=== PATIENT | male | born 1990 | race Caucasian/White ===

== ENCOUNTER 2016-07-14 14:53 | Emergency (ER) | payer BC, OTHER ==
[~2016-07-14] VITALS: Ht 180.3 cm; Wt 90.3 kg
[2016-07-14 14:56] VITALS: TEMP 36.6; Ht 180.3 cm; Wt 90.3 kg
[2016-07-14] MEDS ORDERED: DIPHTHERIA/TETANUS/PERTUSSIS 0.5 ML SYR/VIAL IM. ONE (15:30)
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
[2016-07-14 16:48] VITALS: BP 122/78; PULSE 88; O2SAT 98
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
== END 2016-07-14 16:54 | disposition home or self-care (01) ==
LOC: C.EDB 14:54 → C.EDA 16:54
DX: S63.502A Unspecified sprain of left wrist, initial encounter (principal); V43.51XA Car driver injured in collision with sport utility vehicle in traffic accident, initial encounter; Z80.9 Family history of malignant neoplasm, unspecified; Z82.49 Family history of ischemic heart disease and other diseases of the circulatory system

== ENCOUNTER → 2016-12-13 | Outpatient (CLI) | payer BC ==
--- NOTE | 2016-12-13 13:44 | DIAGNOSTIC IMAGING REPORT ---
CHEST 2 VIEWS ROUTINE CLINICAL HISTORY: Cough. Fever. COMPARISON STUDY: No previous studies for comparison. FINDINGS: Lung volumes are normal. No pneumothorax or pleural effusion is present. Cardiac size is normal. Mediastinal contours are normal. There is no evidence of pulmonary edema. Pulmonary vascularity is normal. IMPRESSION: No acute cardiopulmonary findings. Electronically signed by: Heriberto Mathias M.D. 12/13/2016 1:42 PM Dictated Date/Time: 12/13/2016 1:41 PM
== END | disposition home or self-care (01) ==
LOC: C.RAD 13:24
PROVIDERS: ATTEND Physician Assistant Surgical
DX: R05 Cough (principal); R50.9 Fever, unspecified